=== PATIENT | male | born 1995 | race Caucasian/White ===

== ENCOUNTER 2016-07-06 19:49 | Emergency (ER) | payer BC, OTHER ==
[~2016-07-06] VITALS: Ht 172.7 cm; Wt 62.6 kg
[2016-07-06 19:51] VITALS: BP 130/73
--- NOTE | 2016-07-06 21:18 | NUR ---
PATIENT LEFT WITHOUT BEING SEEN BY DR. HARRISON. NO FURTHER CARE PROVIDED FOR PATIENT.
== END 2016-07-06 21:18 | disposition left against medical advice (07) ==
LOC: MED 19:49
DX: R07.89 Other chest pain (principal); Z88.6 Allergy status to analgesic agent; Z53.21 Procedure and treatment not carried out due to patient leaving prior to being seen by health care provider
CPT/HCPCS: 93005; 99281

== ENCOUNTER 2021-08-28 01:34 | Emergency (ER) | payer OTHER ==
[~2021-08-28] VITALS: Ht 170.2 cm; Wt 65.8 kg
[2021-08-28 01:44] VITALS: BP 131/94
--- NOTE | 2021-08-28 02:22 | NUR ---
PT TAKEN TO BED 8
--- NOTE | 2021-08-28 02:30 | NUR ---
RECEIVED IN BED 8 WITH C/O PALPITATION X TODAY. PT SAYS HAS HAD SIMILAR EPISODE IN THE PAST BUT THE PALPITATIONS SUBSIDED. ATTACHED TO [employer] = AFIB WITH RVR PMHx: DENIES
[2021-08-28] MEDS ORDERED: METOPROLOL 5 MG/5 ML VIAL IVP ONE (02:35)
[2021-08-28 02:54] LABS: EOSINOPHILS # (AUTO) 0.4 K/uL (0-0.4)
[2021-08-28 03:09] LABS: BASOPHILS % (AUTO) 0.5 % (0.0-2.0); EOSINOPHILS % (AUTO) 5.4 % (0.0-4.0); HEMATOCRIT 46.2 % (36-52); HEMOGLOBIN 15.8 g/dL (12.0-18.0); LYMPHOCYTES # (AUTO) 2.2 K/uL (2.0-11.5); LYMPHOCYTES % (AUTO) 32.6 % (20.5-51.1); MEAN CORPUSCULAR HEMOGLOBIN 30 pg (27-31); MEAN CORPUSCULAR HGB CONC 34 g/dL (33-37); MEAN CORPUSCULAR VOLUME 88.8 fL (80-94); MONOCYTES # (AUTO) 0.7 K/uL (0.8-1.0); NEUTROPHILS # (AUTO) 3.6 K/uL (1.8-7.7); NEUTROPHILS % (AUTO) 51.5 % (42.2-75.2); PLATELET COUNT (AUTO) 242 K/uL (140-450); RED BLOOD CELL COUNT(AUTO) 5.21 MIL/uL (4.20-6.10); RED CELL DISTRIBUTION WIDTH 13.2 % (11.6-13.7); WHITE BLOOD COUNT (AUTO) 6.9 K/uL (4.8-10.8)
--- NOTE | 2021-08-28 03:12 | NUR ---
X-Ray at bedside.
[2021-08-28 03:22] LABS: ALBUMIN 4.5 g/dL (3.4-5.0); ANION GAP 10.1 (8-16); ASPARTATE AMINOTRANSFERASE 11 U/L (15-37); CARBON DIOXIDE 30.1 mmol/L (21-32); CHLORIDE 108 mmol/L (98-107); CREATININE 0.9 mg/dL (0.6-1.3); GFR ARICAN-AMERICAN 129 mL/min (>90); GLUCOSE 107 mg/dL (74-106); POTASSIUM 3.2 mmol/L (3.5-5.1); SODIUM SERUM 145 mmol/L (136-145); THYROID STIMULATING HORMONE 2.22 uIU/mL (0.34-3.74); TOTAL BILIRUBIN 0.4 mg/dL (0.0-1.0); UREA NITROGEN, BLOOD 15 mg/dL (7-18)
[2021-08-28] MEDS ORDERED: POTASSIUM CHLORIDE 10 MEQ TABER PO ONE (04:00)
--- NOTE | 2021-08-28 04:00 | NUR ---
[employer] REMAINS A-FIB WITH RVR. PT DENIES PAIN OR DISCOMFORT
[2021-08-28 04:59] LABS: APPEARANCE,URINE CLEAR (CLEAR); BILIRUBIN,URINE NEGATIVE (NEGATIVE); BLOOD, URINE NEGATIVE (NEGATIVE); COLOR,URINE YELLOW (YELLOW); LEUKOCYTE ESTERASE ,URINE NEGATIVE (NEGATIVE); NITRITE, URINE NEGATIVE (NEGATIVE); UGLUCOSE NEGATIVE (NEGATIVE)
[2021-08-28] MEDS ORDERED: NACL 0.9% 1,000 ML IV ONE (05:20)
[2021-08-28] MEDS ORDERED: DILTIAZEM 25 MG/5 ML VIAL IVP ONE (05:25)
--- NOTE | 2021-08-28 07:14 | NUR ---
ARTUR SWAB OBTAINED AND SENT TO LAB
[2021-08-28] MEDS ORDERED: DILT30TA18 PO (07:19)
[2021-08-28 07:49] VITALS: BP 137/54
--- NOTE | 2021-08-28 07:53 | NUR ---
Patient discharged with v/s stable. Written and verbal after care instructions given and explained. Patient alert, oriented and verbalized understanding of instructions. Wheel Chair Assisted with steady gait. All questions addressed prior to discharge. ID band removed. Patient advised to follow up with PMD. Rx of DILITIAZEM HCL given. Patient educated on indication of medication including possible reaction and side effects. Opportunity to ask questions provided and answered.
== END 2021-08-28 07:49 | disposition home or self-care (01) ==
LOC: MED 01:34
DX: I48.91 Unspecified atrial fibrillation (principal); Z20.822 Contact with and (suspected) exposure to COVID-19; Z79.1 Long term (current) use of non-steroidal anti-inflammatories (NSAID)
CPT/HCPCS: 36415; 71045; 80053; 81003; 84443; 84484; 85025; 87426; 93005; 96361; 96374; 96375; 99285; J3490; Q0092; J7030